=== PATIENT | male | born 1965 | race American Indian/Alaskan Native ===

== ENCOUNTER 2017-06-28 01:22 | Emergency (ER) | payer OTHER ==
--- NOTE | 2017-06-28 02:02 | XR ---
EXAMINATION TYPE: XR knee complete RT DATE OF EXAM: 06/28/2017 COMPARISON: NONE HISTORY: Fall and knee pain TECHNIQUE: 3 views FINDINGS: I see no fracture nor dislocation. Joint spaces are fairly normal. There is probably a smal l knee joint effusion. IMPRESSION: Small joint effusion. No fracture.
--- NOTE | 2017-06-28 02:03 | XR ---
EXAMINATION TYPE: XR ankle complete RT DATE OF EXAM: 06/28/2017 COMPARISON: NONE HISTORY: Fall and pain TECHNIQUE: 3 views FINDINGS: I see no fracture nor dislocation. Ankle mortise is anatomic. Joint spaces are normal. IMPRESSION: No fracture seen. Negative exam.
[2017-06-28] MEDS ORDERED: HYDROcodone/APAP 5-325MG 1 EACH TAB PO STA (02:06)
[2017-06-28] MEDS ORDERED: KETOROLAC 60 MG/2 ML VIAL IVP STA (02:06)
--- NOTE | 2017-06-28 02:10 | ED ---
General Adult HPI - General Chief complaint: Extremity Injury, Lower Stated complaint: FALL,KNEE PAIN Time Seen by Provider: 06/28/17 01:25 Source: patient, family, RN notes reviewed Mode of arrival: ambulatory - History of Present Illness Initial comments: This is a 51-year-old male who presents emergency Department complaining of right knee pain. Patient states she was walking and twisted it and since then it swelled up as hurts to ambulate. Patient denies any direct fall or trauma to the knee. Patient states had bouts of that knee for quite a while. Patient states his ankle also hurt a little bit but not very bad. Patient denies any other injury at this time. - Related Data Previous Rx's Medication Instructions Recorded Hydrocodone/Acetaminophen [Hudson 1 each PO Q4HR PRN #10 tab 06/28/17 5-325] Ibuprofen [Motrin] 600 mg PO Q6HR PRN #20 tab 06/28/17 Allergies Allergy/AdvReac Type Severity Reaction Status Date / Time No Known Allergies Allergy Verified 06/28/17 01:31 Review of Systems ROS Statement: Those systems with pertinent positive or pertinent negative responses have been documented in the HPI. ROS Other: All systems not noted in ROS Statement are negative. Past Medical History Additional Past Medical History / Comment(s): HAVING RECTAL PAIN AND SOME BLOOD , STATES HX OF RECTAL ABSCESS. , STATES ANTIBIOTIC FROM DR RAMOS FOR RECTAL PAIN. History of Any Multi-Drug Resistant Organisms: None Reported Past Surgical History: Hernia Repair Additional Past Surgical History / Comment(s): LUMP REMOVED BY RECTUM, ARTHROSCOPY LT KNEE, INGUINAL HERNIA Past Anesthesia/Blood Transfusion Reactions: No Reported Reaction Past Psychological History: No Psychological Hx Reported Smoking Status: Never smoker Past Alcohol Use History: Occasional Past Drug Use History: None Reported - Past Family History Mother Additional Family Medical History / Comment(s): HEART SURGERY Father Family Medical History: Diabetes Mellitus General Exam - General Exam Comments Initial Comments: GENERAL Patient is well-developed and well-nourished. Patient is in mild distress. EYES Patient's pupils are equal and round. Extraocular motion is intact SKIN Unremarkable NEURO The patient is alert and oriented 3 PYSCH Patient has normal interpersonal interactions. MUSCULOSKELETAL Knee has obvious effusion. But I'm I am on unable to test laxity because of the pain. Medical Decision Making - Medical Decision Making X-ray of the knee and ankle are negative for fracture the knee however does show a small joint effusion. Disposition Clinical Impression: Derangement of knee Disposition: HOME SELF-CARE Condition: Good Instructions: Knee Sprain (ED) Prescriptions: Hydrocodone/Acetaminophen [Hudson 5-325] 1 each PO Q4HR PRN #10 tab PRN Reason: Pain Ibuprofen [Motrin] 600 mg PO Q6HR PRN #20 tab PRN Reason: For pain Is patient prescribed a controlled substance at discharge?: Yes If prescribed controlled substance>3 days was MAPS reviewed?: No When asked, does pt state using other controlled substances?: No Referrals: Ulises Ramos DO [Primary Care Provider] - 1-2 days Miguel A Morrow DO [Doctor of Osteopathic Medicine] - 1-2 days Time of Disposition: 02:08
== END 2017-06-28 02:40 | disposition home or self-care (01) ==
LOC: EC 01:22
DX: M23.91 Unspecified internal derangement of right knee (principal); M25.461 Effusion, right knee; X50.1XXA Overexertion from prolonged static or awkward postures, initial encounter; W19.XXXA Unspecified fall, initial encounter; Y93.01 Activity, walking, marching and hiking; Y92.009 Unspecified place in unspecified non-institutional (private) residence as the place of occurrence of the external cause
CPT/HCPCS: 73562; 73610; 99283; 96372; L1830; J1885

== ENCOUNTER → 2017-07-01 | Outpatient (CLI) | payer OTHER ==
--- NOTE | 2017-07-02 22:35 | MR ---
EXAMINATION TYPE: MR knee RT wo con DATE OF EXAM: 07/01/2017 COMPARISON: Outside right knee x-ray from yesterday. HISTORY: Pain in right knee after twist and fall injury per patient. TECHNIQUE: Multiplanar, multisequence images of the knee is performed without IV contrast. FINDINGS: MEDIAL MENISCUS: Anterior horn is intact without tear. There is oblique and horizontal increased sign al posterior horn medial meniscus does not extend to articular surface. LATERAL MENISCUS: There is horizontal increased signal with oblique component anteriorly extending to articular surface through the lateral meniscus involving anterior horn through the body and extensio n into the superior aspect of the posterior horn where there is oblique signal extending to the super ior articular surface. CRUCIATE LIGAMENTS: The anterior and posterior cruciate ligaments are intact and unremarkable. COLLATERAL LIGAMENTS: The medial collateral ligament and lateral collateral ligament complex are inta ct. There is increased signal and thickening in proximal portion of the biceps femoris. Adjacent cyst ic changes noted, presumed para meniscal cystic change. There is mild to moderate fluid along the piper per aspects of medial collateral ligament. EXTENSOR MECHANISM: Visualized quadriceps and patellar tendons are intact. EFFUSION: There is small to moderate size suprapatellar joint effusion. POPLITEAL CYST: No popliteal/strickland cyst. TRICOMPARTMENT SPACES: There is mild to moderate tricompartment joint space loss. No significant spur ring is seen. CARTILAGE: There is some thinning of articular cartilage inferior posterior aspect patellar pole. Cliff e thinning of articular cartilage medial tibial femoral compartment is seen. No full thickness cartil aginous loss is noted. BONE MARROW SIGNAL: There is heterogeneous increased T2 signal involving the posterior medial aspect of the tibial plateau, seen best on coronal image 27 and sagittal image 8 there is irregular low T1 s ignal consistent with acute nondisplaced intra-articular fracture. There is extension or incomplete f racture noted below tibial condyles on coronal image 26. OTHER: No additional significant abnormality is appreciated. IMPRESSION: 1. There is acute nondisplaced fracture through the posterior medial aspect of the tibial plateau wit h surrounding osseous contusion and/or bone marrow edema. No step-off is noted. 2. There is complex full-thickness tear through the lateral meniscus. 3. There is degenerative intrasubstance tear posterior horn of medial meniscus. 4. There is mild to moderate MCL sprain injury. 5. There are small to moderate-sized suprapatellar joint effusion. 6. There is background mild to moderate tricompartment degenerative change.
== END | disposition home or self-care (01) ==
LOC: RADMRIMAIN 19:12
PROVIDERS: ATTEND Orthopaedic Surgery
DX: S82.134A Nondisplaced fracture of medial condyle of right tibia, initial encounter for closed fracture (principal); S83.241A Other tear of medial meniscus, current injury, right knee, initial encounter; S83.281A Other tear of lateral meniscus, current injury, right knee, initial encounter; S83.411A Sprain of medial collateral ligament of right knee, initial encounter

== ENCOUNTER → 2017-07-04 | Outpatient (CLI) | payer OTHER ==
[2017-07-04 15:37] LABS: Basophils % (A) 0 %; Eosinophils # (A) 0.3 k/uL (0-0.7); Eosinophils % (A) 3 %; HCT 43.9 % (39.0-53.0); HGB 14.7 gm/dL (13.0-17.5); Lymphocytes # (A) 2.1 k/uL (1.0-4.8); Lymphocytes % (A) 20 %; MCH 27.8 pg (25.0-35.0); MCHC 33.5 g/dL (31.0-37.0); Mean Platelet Volume 6.6; Monocytes # (A) 0.8 k/uL (0-1.0); Monocytes % (A) 8 %; Neutrophils # (A) 6.7 k/uL (1.3-7.7); Neutrophils % (A) 66 %; Platelet Count 366 k/uL (150-450); RBC 5.29 m/uL (4.30-5.90); RDW 13.1 % (11.5-15.5); WBC 10.1 k/uL (3.8-10.6)
[2017-07-04 15:45] LABS: Potassium 3.9 mmol/L (3.5-5.1)
== END | disposition home or self-care (01) ==
LOC: LABPAT 15:09
PROVIDERS: ATTEND Orthopaedic Surgery
DX: Z01.818 Encounter for other preprocedural examination (principal); Z01.812 Encounter for preprocedural laboratory examination; M23.91 Unspecified internal derangement of right knee
CPT/HCPCS: 36415; 80051; 85025; 93005

== ENCOUNTER 2017-07-08 08:19 | Day surgery (SDC) | payer OTHER ==
[2017-07-05 15:48] VITALS: BMI 36.9
--- NOTE | 2017-07-07 10:25 | HP ---
HISTORY AND PHYSICAL CHIEF COMPLAINT: Right knee pain. 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 He fell. He has had pain and swelling ever since. He had an initial injection with some relief. He notes lateral pain and giving way. PAST MEDICAL HISTORY: Negative. PAST SURGICAL HISTORY: Significant for left knee arthroscopy. CURRENT ALLERGIES: None. He denies drug allergies. FAMILY HISTORY: Significant for heart disease and diabetes. SOCIAL HISTORY: Negative for current tobacco or alcohol use. 16 POINT REVIEW OF SYSTEMS: Otherwise reviewed and is noncontributory. PHYSICAL EXAMINATION: The patient is approximately 5 foot 9, 250 pounds of endomorphic habitus. HEENT exam is nonfocal. Neck is supple. He has painless passive motion of the right hip. Straight leg raise is negative. On examination of his right knee, he has a moderate effusion. He is tender about the lateral joint line. Active motion -10 to 115 degrees of flexion. Collaterals are stable, Maya is negative, Lavinia's elicits lateral pain. His distal neurovascular exam appears intact in the right lower extremity. X-rays of the right knee obtained in the office show mild medial compartment narrowing. No definite displaced fracture is noted. MRI report from 07/01/2017 shows increased signal involving the posterior aspect of the medial tibial plateau along with a medial collateral ligament sprain and lateral meniscal tear. IMPRESSION: 1. Right knee internal derangement with symptomatic lateral meniscal tear. 2. Posterior medial tibial plateau contusion right knee. 3. Right knee mild medial compartment osteoarthrosis. 4. Increased body mass index. RECOMMENDATIONS: I talked to the patient at length regarding his treatment options. At this point, he is having pain and mechanical symptoms that limit him. After thorough discussion, he opts to proceed with surgery. We will plan to proceed with arthroscopic evaluation with probable partial lateral meniscectomy. Risks and benefits were discussed at length in layman's terms. Will likely perform that as an outpatient procedure. MMODL / IJN: [id number] /
[~2017-07-08 08:19] MED LIST: DEXAMETHASONE SOD PHOSPHATE 10 MG/ML 1 ML VIAL IV ONE; LACTATED RINGERS 1,000 ML IV SCH; MIDAZOLAM 2 MG/2 ML VIAL IV PRN; ONDANSETRON ODT 4 MG TAB PO ONE; SCOPOLAMINE 1.5MG/72HR PATCH TRANSDERM ONE; fentaNYL (PF) 50 MCG/ML 2 ML AMP IV PRN
[2017-07-08] MEDS ORDERED: ONDANSETRON 4 MG/2 ML VIAL IVP ONE (10:25)
[2017-07-08] MEDS ORDERED: SUCCINYLCHOLINE CHLORIDE 100 MG/5 ML SYR IV ONE (10:52)
[2017-07-08] MEDS: ceFAZolin IN SWFI 2 GM/20 ML SYRINGE IVP ONE ×2 (10:52→11:10)
[2017-07-08] MEDS ORDERED: PROPOFOL 10 MG/ML 20 ML VIAL IV ONE (10:52)
[2017-07-08] MEDS ORDERED: LIDOCAINE 1% INJ 10MG/ML (20 ML MDV) ONE (10:52)
[2017-07-08] MEDS ORDERED: MORPHINE SULFATE 10 MG/ML SYRINGE ONE (10:52)
[2017-07-08] MEDS ORDERED: fentaNYL (PF) 50 MCG/ML 2 ML AMP ONE (10:52)
[2017-07-08] MEDS ORDERED: MIDAZOLAM 2 MG/2 ML VIAL ONE (10:52)
--- NOTE | 2017-07-08 11:48 | P.OP ---
Date of Procedure: 07/08/17 Preoperative Diagnosis: Right knee lateral meniscal tear Postoperative Diagnosis: Same in addition to a discoid lateral meniscus/grade 2-3 chondral injury central portion patella Procedure(s) Performed: Right knee arthroscopic partial lateral meniscectomy/saucerization lateral meniscus/patellar chondroplasty Anesthesia: RONAK Surgeon: Fabio Banks Estimated Blood Loss (ml): 10 Pathology: none sent Condition: stable Disposition: PACU Indications for Procedure: The patient's a 51-year-old male who presents with progressive right knee pain and mechanical symptoms after a recent twisting injury. Clinically and by MRI he was noted to have evidence of a symptomatic lateral meniscal tear. A discussion of the risks and benefits of operative intervention versus conservative measures was made with the patient. He opted to proceed with surgery. Operative risks to include infection, neurovascular injury, development of blood clots, possible incomplete resolution symptoms, possible worsening symptoms and need for subsequent procedures was discussed. Informed consent was obtained. Operative Findings: As below Description of Procedure: The patient was brought to the operating room, and after induction of general anesthesia examined the right knee. Collaterals were stable, Maya was negative, and posterior drawer was negative. The right lower extremity was prepped and draped in normal fashion. A superior lateral portal was made through a 3 mm skin incision superior and lateral to the patella. This was used for outflow. A lateral portal was made through a 5 mm vertical skin incision lateral to the patella tendon above the joint line. Diagnostic arthroscopy was performed. A medial portal was made through a similar incision medial to the patellar tendon above the joint line. On inspection of the medial compartment, no significant meniscal or cartilage pathology was noted. On inspection of the notch, the anterior cruciate ligament appeared be intact. On inspection of the lateral compartment, the patient was noted have a discoid lateral meniscus with maceration and tear near the periphery. At this point it was elected to proceed with saucerization of the lateral meniscus along with partial lateral meniscectomy. This was taken back to stable base with straight baskets and motorized shaver. Grade 2 chondral changes were noted diffusely in the lateral compartment. On inspection of the patellofemoral articulation, a grade 2-3 chondral injury was noted in both involving the central portion the patella. There was a loose chondral fragment that was debrided back to a stable base with a motorized shaver. The gutters were clear debris. The knee was then thoroughly irrigated. The portals were closed with Steri-Strips. A sterile dressing was applied in addition to a compression stocking. The patient was awoken from general anesthesia and transferred to recovery room in good condition. Blood loss was estimated at 10 mL. No complications were incurred.
[2017-07-08 11:59] VITALS: TEMP 97.8
[2017-07-08] MEDS: MORPHINE SULFATE 4 MG/0.8 ML SYRINGE (INJ) IVP ONE ×4 (12:15→12:38)
[2017-07-08] MEDS ORDERED: LACTATED RINGERS 1,000 ML IV ONE (13:24)
[2017-07-08 13:42] VITALS: RESP 18
[2017-07-08] MEDS ORDERED: HYDROcodone/APAP 5-325MG 1 EACH TAB PO ONE (13:48)
[2017-07-08 14:12] VITALS: BP 119/79; PULSE 54
== END 2017-07-08 14:35 | disposition home or self-care (01) ==
LOC: OR 08:19
PROVIDERS: ATTEND Orthopaedic Surgery
DX: S83.281A Other tear of lateral meniscus, current injury, right knee, initial encounter (principal); S89.81XA Other specified injuries of right lower leg, initial encounter; S80.01XA Contusion of right knee, initial encounter; Y93.H2 Activity, gardening and landscaping; Y99.8 Other external cause status; M17.11 Unilateral primary osteoarthritis, right knee; X50.1XXA Overexertion from prolonged static or awkward postures, initial encounter; Z82.49 Family history of ischemic heart disease and other diseases of the circulatory system; Z83.3 Family history of diabetes mellitus
CPT/HCPCS: 29881; J2250; J1100; J2270 ×2; J2405; J2001; J3010; J0330; J2704; J0690

== ENCOUNTER 2021-11-07 17:57 | Observation (INO) | payer OTHER ==
[2021-11-07] MEDS ORDERED: HYDROmorphone 0.5 MG/0.5 ML SYRINGE IVP STA (18:40)
[2021-11-07] MEDS ORDERED: SODIUM CHLORIDE 0.9% 1,000 ML IV STA (18:40)
[2021-11-07] MEDS ORDERED: ONDANSETRON 4 MG/2 ML VIAL IVP STA (18:40)
--- NOTE | 2021-11-07 18:50 | ED ---
General Adult HPI - General Chief complaint: Skin/Abscess/Foreign Body Stated complaint: Abscess Time Seen by Provider: 11/07/21 18:18 Source: patient, RN notes reviewed Mode of arrival: ambulatory Limitations: no limitations - History of Present Illness Initial comments: 56-year-old male presents to the emergency Department with complaints of rectal abscess. Patient states he has a history of recurrent abscesses and has once required surgery (while in [place]). Describes location of the abscess as entirely internal therefore has no visualized redness or drainage at this time. States he had left over antibiotic that he took 2 or 3 doses of with no improvement. States he is able to pass stool, though it is painful. 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 Denies fever, chills, headache, chest pain, shortness of breath, abdominal pain, nausea, vomiting, diarrhea, or dysuria. - Related Data Home Medications Medication Instructions Recorded Confirmed Amoxicillin 500 mg PO TID 11/07/21 11/07/21 Allergies Allergy/AdvReac Type Severity Reaction Status Date / Time No Known Allergies Allergy Verified 11/07/21 21:28 Review of Systems ROS Statement: Those systems with pertinent positive or pertinent negative responses have been documented in the HPI. ROS Other: All systems not noted in ROS Statement are negative. Past Medical History Additional Past Medical History / Comment(s): STATES HX OF RECTAL ABSCESS. History of Any Multi-Drug Resistant Organisms: None Reported Past Surgical History: Hernia Repair, Orthopedic Surgery Additional Past Surgical History / Comment(s): LUMP REMOVED BY RECTUM,ARTHROSCOPY LT KNEE, INGUINAL HERNIA Past Anesthesia/Blood Transfusion Reactions: No Reported Reaction Past Psychological History: No Psychological Hx Reported Smoking Status: Never smoker Past Alcohol Use History: Occasional Past Drug Use History: None Reported - Past Family History Mother Additional Family Medical History / Comment(s): HEART SURGERY Father Family Medical History: Diabetes Mellitus General Exam Limitations: no limitations General appearance: alert, in no apparent distress, other (Well-developed, well- nourished male in no acute distress, though does appear moderately uncomfortable. Initial temperature 98.0, recheck 99.7, pulse 102, respirations 20, blood pressure 133/84, pulse ox 96% on room air.) ENT exam: Present: normal exam, normal oropharynx, mucous membranes moist Respiratory exam: Present: normal lung sounds bilaterally. Absent: respiratory distress, wheezes, rales, rhonchi, stridor, chest wall tenderness Cardiovascular Exam: Present: regular rate, normal rhythm, normal heart sounds. Absent: systolic murmur, diastolic murmur, rubs, gallop, clicks GI/Abdominal exam: Present: soft, normal bowel sounds. Absent: distended, tenderness, guarding, rebound, rigid Rectal exam: Present: tenderness (no discomfort upon external palpation) Back exam: Present: normal inspection, full ROM Neurological exam: Present: alert, oriented X3, normal gait Psychiatric exam: Present: normal affect, normal mood Skin exam: Present: warm, dry, intact, normal color. Absent: rash Course Vital Signs 11/07/21 11/07/21 11/07/21 17:59 21:30 23:34 Temperature 98.0 F Pulse Rate 102 H 98 97 Respiratory 20 18 18 Rate Blood Pressure 133/84 102/68 101/61 O2 Sat by Pulse 96 95 96 Oximetry Medical Decision Making - Medical Decision Making This is a pleasant 56-year-old male with a past medical history of recurrent rectal abscesses who presents to the emergency department for evaluation of rectal discomfort. Upon exam, patient does appear moderately uncomfortable but is in no acute distress. Physical exam findings are unremarkable and there is no external evidence of infectious process. Laboratory studies were obtained showing leukocytosis (WBC 16.4). CT of the pelvis confirms perirectal abscess. I did speak with Dr. Cooley who agrees to accept this admission. Hospitalist will be consulted for medical management. Zosyn is initiated and patient is NPO. Dilaudid was given for pain with minimal improvement, though patient was content. His care was discussed my attending, Dr. Brumfield. - Lab Data Result diagrams: 11/08/21 02:00 11/08/21 02:00 Lab Results 11/07/21 11/07/21 Range/Units 19:00 19:00 WBC 16.4 H (3.8-10.6) k/uL RBC 5.56 (4.30-5.90) m/uL Hgb 15.9 (13.0-17.5) gm/dL Hct 47.2 (39.0-53.0) % MCV 84.8 (80.0-100.0) fL MCH 28.7 (25.0-35.0) pg MCHC 33.8 (31.0-37.0) g/dL RDW 13.3 (11.5-15.5) % Plt Count 272 (150-450) k/uL MPV 7.4 Neutrophils % 82 % Lymphocytes % 8 % Monocytes % 7 % Eosinophils % 1 % Basophils % 0 % Neutrophils # 13.4 H (1.3-7.7) k/uL Lymphocytes # 1.3 (1.0-4.8) k/uL Monocytes # 1.2 H (0-1.0) k/uL Eosinophils # 0.1 (0-0.7) k/uL Basophils # 0.1 (0-0.2) k/uL Sodium 135 L (137-145) mmol/L Potassium 3.9 (3.5-5.1) mmol/L Chloride 98 (98-107) mmol/L Carbon Dioxide 25 (22-30) mmol/L Anion Gap 12 mmol/L BUN 12 (9-20) mg/dL Creatinine 0.93 (0.66-1.25) mg/dL Est GFR (CKD-EPI)AfAm >90 (>60 ml/min/1.73 sqM) Est GFR (CKD-EPI)NonAf >90 (>60 ml/min/1.73 sqM) Glucose 114 H (74-99) mg/dL Calcium 9.4 (8.4-10.2) mg/dL Total Bilirubin 1.1 (0.2-1.3) mg/dL AST 30 (17-59) U/L ALT 31 (4-49) U/L Alkaline Phosphatase 87 (38-126) U/L Total Protein 7.3 (6.3-8.2) g/dL Albumin 4.1 (3.5-5.0) g/dL - Radiology Data Radiology results: report reviewed, image reviewed CT of the pelvis with contrast was obtained. Report was reviewed in its entirety. Impression per Dr. Crawford is right-sided perirectal abscess. Disposition Clinical Impression: Perirectal abscess Disposition: ADMITTED IP TO THIS [facility] Condition: Serious Decision Date: 11/07/21 Decision Time: 21:18
[2021-11-07 19:44] LABS: Basophils # (A) 0.1 k/uL (0-0.2); Basophils % (A) 0 %; Eosinophils # (A) 0.1 k/uL (0-0.7); Eosinophils % (A) 1 %; HCT 47.2 % (39.0-53.0); HGB 15.9 gm/dL (13.0-17.5); Lymphocytes # (A) 1.3 k/uL (1.0-4.8); Lymphocytes % (A) 8 %; MCH 28.7 pg (25.0-35.0); MCHC 33.8 g/dL (31.0-37.0); MCV 84.8 fL (80.0-100.0); Mean Platelet Volume 7.4; Monocytes # (A) 1.2 k/uL (0-1.0); Monocytes % (A) 7 %; Neutrophils # (A) 13.4 k/uL (1.3-7.7); Neutrophils % (A) 82 %; Platelet Count 272 k/uL (150-450); RBC 5.56 m/uL (4.30-5.90); RDW 13.3 % (11.5-15.5); WBC 16.4 k/uL (3.8-10.6)
[2021-11-07 20:00] LABS: ALT 31 U/L (4-49); AST 30 U/L (17-59); African American GFR (CKD) >90 (>60 ml/min/1.73 sqM); Albumin 4.1 g/dL (3.5-5.0); Alkaline Phosphatase 87 U/L (38-126); Anion Gap 12 mmol/L; Blood Urea Nitrogen 12 mg/dL (9-20); Calcium 9.4 mg/dL (8.4-10.2); Carbon Dioxide 25 mmol/L (22-30); Chloride 98 mmol/L (98-107); Glucose 114 mg/dL (74-99); Non-African American GFR(CKD) >90 (>60 ml/min/1.73 sqM); Potassium 3.9 mmol/L (3.5-5.1); Sodium 135 mmol/L (137-145); Total Bilirubin 1.1 mg/dL (0.2-1.3); Total Protein 7.3 g/dL (6.3-8.2)
--- NOTE | 2021-11-07 20:20 | CT ---
EXAMINATION TYPE: CT pelvis w con DATE OF EXAM: 11/07/2021 COMPARISON: None HISTORY: rectal pain, h/o abscess CT DLP: 1642.6 mGycm Automated exposure control for dose reduction was used. CONTRAST: Performed with IV Contrast, patient injected with 100 mL of Isovue 300. Images obtained from the iliac crests to the floor of the pelvis with the IV contrast. There is no free fluid in the pelvis. There is normal contrast opacification of the urinary bladder. Bladder distends smoothly. No bowel obstruction. Bony pelvis is intact. No fracture. Hip joints are i ntact. There is some mild fat stranding around the lower rectum. There is wall thickening and 3 x 2 c m fluid density on the right lateral wall of the rectum consistent with perirectal abscess. No free f luid within the pelvis. IMPRESSION: Right-sided perirectal abscess.
[2021-11-07] MEDS ORDERED: ONDANSETRON 4 MG/2 ML VIAL IVP PRN (21:18)
[2021-11-07] MEDS ORDERED: NALOXONE 0.4 MG/ML 1 ML VIAL IV PRN (21:18)
[2021-11-07] MEDS ORDERED: PIPERACILLIN-TAZOBACTAM 3.375 GM in SODIUM CHLORIDE 0.9% 100 ML IVPB STA (21:21)
[2021-11-07] MEDS: SODIUM CHLORIDE 0.9% 1,000 ML IV SCH (21:44)
[2021-11-07] MEDS: HYDROmorphone 1 MG/ML 1 ML SYRINGE IVP PRN (21:46)
[2021-11-08] MEDS: HYDROmorphone 1 MG/ML 1 ML SYRINGE IVP PRN (00:29)
[2021-11-08 02:39] LABS: African American GFR (CKD) >90 (>60 ml/min/1.73 sqM); Anion Gap 10 mmol/L; Blood Urea Nitrogen 14 mg/dL (9-20); Calcium 8.5 mg/dL (8.4-10.2); Carbon Dioxide 25 mmol/L (22-30); Chloride 100 mmol/L (98-107); Glucose 117 mg/dL (74-99); Non-African American GFR(CKD) >90 (>60 ml/min/1.73 sqM); Potassium 4.3 mmol/L (3.5-5.1); Sodium 135 mmol/L (137-145)
[2021-11-08 02:43] LABS: Basophils # (A) 0.1 k/uL (0-0.2); Basophils % (A) 0 %; Eosinophils # (A) 0.1 k/uL (0-0.7); Eosinophils % (A) 0 %; HCT 42.5 % (39.0-53.0); HGB 14.2 gm/dL (13.0-17.5); Lymphocytes % (A) 5 %; MCH 28.3 pg (25.0-35.0); MCHC 33.4 g/dL (31.0-37.0); MCV 84.6 fL (80.0-100.0); Mean Platelet Volume 7.2; Monocytes # (A) 1.5 k/uL (0-1.0); Monocytes % (A) 7 %; Neutrophils # (A) 18.5 k/uL (1.3-7.7); Neutrophils % (A) 86 %; Platelet Count 254 k/uL (150-450); RBC 5.03 m/uL (4.30-5.90); WBC 21.4 k/uL (3.8-10.6)
[2021-11-08] MEDS ORDERED: MIDAZOLAM 2 MG/2 ML VIAL ONE (08:30)
[2021-11-08] MEDS ORDERED: PROPOFOL 10 MG/ML 20 ML VIAL IV ONE (08:30)
[2021-11-08] MEDS ORDERED: fentaNYL (PF) 50 MCG/ML 2 ML AMP ONE (08:30)
[2021-11-08] MEDS ORDERED: LIDOCAINE 2% INJ 20 MG/ML (2 ML VIAL) ONE (08:30)
[2021-11-08] MEDS ORDERED: HEPARIN SODIUM,PORCINE 5,000 UNIT/ML 1 ML VIAL ONE (08:30)
[2021-11-08] MEDS ORDERED: ONDANSETRON 4 MG/2 ML VIAL ONE (08:30)
[2021-11-08] MEDS ORDERED: SUCCINYLCHOLINE CHLORIDE 200 MG/10 ML VIAL IV ONE (08:30)
[2021-11-08] MEDS ORDERED: DEXAMETHASONE SOD PHOSPHATE 10 MG/ML 1 ML VIAL ONE (08:30)
[2021-11-08] MEDS ORDERED: LACTATED RINGERS 1,000 ML IV ONE (08:35)
--- NOTE | 2021-11-08 08:37 | P.GSHP ---
History of Present Illness H&P Date: 11/08/21 Chief Complaint: Rectal abscess 56-year-old male comes the ER yesterday with complaints of rectal pain. Patient states he has had a abscess drained in [place] years ago. Patient states that the abscesses internal. He does not feel anything on the outside. Patient tried taking some antibiotics that he had at home without relief. No fevers. White blood cell count elevated. Patient had a CAT scan showing perirectal abscess primarily involving the right side. Patient's is more of his pain is on the right. - Review of Systems Comment: The patient denies any acute changes in vision or hearing, no dysphagia or odynophagia, no chest pain or shortness of breath, no dysuria or hematuria, no headache, no runny nose, no rectal bleeding or melena, no unexplained weight loss Past Medical History Additional Past Medical History / Comment(s): STATES HX OF RECTAL ABSCESS. History of Any Multi-Drug Resistant Organisms: None Reported Past Surgical History: Hernia Repair, Orthopedic Surgery Additional Past Surgical History / Comment(s): LUMP REMOVED BY RECTUM,ARTHROSCOPY LT KNEE, INGUINAL HERNIA Past Anesthesia/Blood Transfusion Reactions: No Reported Reaction Past Psychological History: No Psychological Hx Reported Smoking Status: Never smoker Past Alcohol Use History: Occasional Past Drug Use History: None Reported - Past Family History Mother Additional Family Medical History / Comment(s): HEART SURGERY Father Family Medical History: Diabetes Mellitus Medications and Allergies Home Medications Medication Instructions Recorded Confirmed Type Amoxicillin 500 mg PO TID 11/07/21 11/07/21 History Allergies Allergy/AdvReac Type Severity Reaction Status Date / Time No Known Allergies Allergy Verified 11/07/21 21:28 Surgical - Exam Vital Signs Temp Pulse Resp BP Pulse Ox 98.0 F 102 H 20 133/84 96 11/07/21 17:59 11/07/21 17:59 11/07/21 17:59 11/07/21 17:59 11/07/21 17:59 Physical exam: General: Well-developed, well-nourished HEENT: Normocephalic, sclerae nonicteric Abdomen: Nontender, nondistended Extremities: No edema Neuro: Alert and oriented Rectal: Digital rectal examination deferred however external evaluation of the perianal region reveals no induration or erythema. Mild tenderness with deep palpation on the right Results - Labs 11/08/21 02:00 11/08/21 02:00 Abnormal Lab Results - Last 24 Hours (Table) 11/07/21 11/07/21 11/08/21 Range/Units 19:00 19:00 02:00 WBC 16.4 H 21.4 H (3.8-10.6) k/uL Neutrophils # 13.4 H 18.5 H (1.3-7.7) k/uL Monocytes # 1.2 H 1.5 H (0-1.0) k/uL Sodium 135 L (137-145) mmol/L Glucose 114 H (74-99) mg/dL 11/08/21 Range/Units 02:00 WBC (3.8-10.6) k/uL Neutrophils # (1.3-7.7) k/uL Monocytes # (0-1.0) k/uL Sodium 135 L (137-145) mmol/L Glucose 117 H (74-99) mg/dL Diabetes panel 11/07/21 11/08/21 Range/Units 19:00 02:00 Sodium 135 L 135 L (137-145) mmol/L Potassium 3.9 4.3 (3.5-5.1) mmol/L Chloride 98 100 (98-107) mmol/L Carbon Dioxide 25 25 (22-30) mmol/L BUN 12 14 (9-20) mg/dL Creatinine 0.93 0.83 (0.66-1.25) mg/dL Glucose 114 H 117 H (74-99) mg/dL Calcium 9.4 8.5 (8.4-10.2) mg/dL AST 30 (17-59) U/L ALT 31 (4-49) U/L Alkaline Phosphatase 87 (38-126) U/L Total Protein 7.3 (6.3-8.2) g/dL Albumin 4.1 (3.5-5.0) g/dL Calcium panel 11/07/21 11/08/21 Range/Units 19:00 02:00 Calcium 9.4 8.5 (8.4-10.2) mg/dL Albumin 4.1 (3.5-5.0) g/dL Pituitary panel 11/07/21 11/08/21 Range/Units 19:00 02:00 Sodium 135 L 135 L (137-145) mmol/L Potassium 3.9 4.3 (3.5-5.1) mmol/L Chloride 98 100 (98-107) mmol/L Carbon Dioxide 25 25 (22-30) mmol/L BUN 12 14 (9-20) mg/dL Creatinine 0.93 0.83 (0.66-1.25) mg/dL Glucose 114 H 117 H (74-99) mg/dL Calcium 9.4 8.5 (8.4-10.2) mg/dL Adrenal panel 11/07/21 11/08/21 Range/Units 19:00 02:00 Sodium 135 L 135 L (137-145) mmol/L Potassium 3.9 4.3 (3.5-5.1) mmol/L Chloride 98 100 (98-107) mmol/L Carbon Dioxide 25 25 (22-30) mmol/L BUN 12 14 (9-20) mg/dL Creatinine 0.93 0.83 (0.66-1.25) mg/dL Glucose 114 H 117 H (74-99) mg/dL Calcium 9.4 8.5 (8.4-10.2) mg/dL Total Bilirubin 1.1 (0.2-1.3) mg/dL AST 30 (17-59) U/L ALT 31 (4-49) U/L Alkaline Phosphatase 87 (38-126) U/L Total Protein 7.3 (6.3-8.2) g/dL Albumin 4.1 (3.5-5.0) g/dL Assessment and Plan (1) Perirectal abscess Narrative/Plan: 56-year-old male with perirectal abscess by history and CAT scan. Proceed with incision and drainage of rectal abscess. This will be performed in the prone position. Anticipate draining into the rectum. Patient does state that he had some clear rectal drainage this morning some relief of his discomfort. Risks of bleeding, infection, recurrence, fistula formation reviewed. He understands and wishes to proceed. Current Visit: Yes Status: Acute Code(s): K61.1 - RECTAL ABSCESS SNOMED Code(s): 57998406
[2021-11-08] MEDS ORDERED: SODIUM CHLORIDE 0.9% 100 ML with ceFAZolin 2,000 MG IV ONE ×2 (09:00)
[2021-11-08] MEDS ORDERED: ACETAMINOPHEN TAB 325 MG TAB PO PRN (09:42)
[2021-11-08] MEDS ORDERED: HYDROcodone/APAP 5-325MG 1 EACH TAB PO PRN (09:42)
[2021-11-08] MEDS ORDERED: HYDROmorphone 0.5 MG/0.5 ML SYRINGE IVP PRN (09:42)
--- NOTE | 2021-11-08 09:47 | P.OP ---
Date of Procedure: 11/08/21 Procedure(s) Performed: PREOPERATIVE DIAGNOSIS: Rectal abscess POSTOPERATIVE DIAGNOSIS: Same PROCEDURE: Incision and drainage of rectal abscess SURGEON: Yasir EBL: 25 mL ANESTHESIA: Gen. COMPLICATIONS: None OPERATIVE PROCEDURE: Patient place in the operating position in the prone jackknife position. The patient had some purulent fluid emanating from the anus while we were positioning. Digital rectal examination revealed induration in the right posterior location. The rectal retractor was utilized. The patient had a sinus opening in the distal aspect of the rectum near the border with the anal canal. This was probed and led into a abscess cavity proximally. Digital palpation of the wall of the rectum however also revealed a small defect in the posterior lateral position on the right that was leading into the abscess cavity as well. These 2 openings did communicate with one another with a thin bridge of mucosa overlying it. The mucosa was divided. Blunt dissection of the more proximal defect took place with a small amount of additional purulence evacuated. The degree of induration was less at that time. I did use a 22- gauge needle to see if there was any additional purulence that was not drained either by ourselves or spontaneously. No additional purulence was noted. The proximal rectal wound was then packed with iodoform gauze. This exited through the anus and was taped to the albert-anal skin. DISPOSITION: Stable to recovery room
[2021-11-08] MEDS ORDERED: HYDROmorphone 0.5 MG/0.5 ML SYRINGE IVP ONE (10:06)
[2021-11-08] MEDS: PIPERACILLIN-TAZOBACTAM 3.375 GM in SODIUM CHLORIDE 0.9% 100 ML IVPB SCH ×2 (11:25→20:28)
--- NOTE | 2021-11-08 11:44 | P.CONS ---
History of Present Illness - Reason for Consult Recommendation regarding antibiotics for perirectal abscess - History of Present Illness Patient is a 56-year-old male came in with compensative rectal pain found to have perirectal abscesses patient had a perirectal abscess the past which was drained in the cold, patient also has a leukocytosis without any fever and patient had incision and drainage of the perirectal abscess with packing in that area and patient was started on Zosyn which will be continued awaiting wound cultures. REVIEW OF SYSTEMS: CONSTITUTIONAL: No fever, no malaise, no fatigue. HEENT: No recent visual problems or hearing problems. Denied any sore throat. CARDIOVASCULAR: No chest pain, orthopnea, PND, no palpitations, no syncope. PULMONARY: No shortness of breath, no cough, no hemoptysis. GASTROINTESTINAL: No diarrhea, no nausea, no vomiting, no abdominal pain. NEUROLOGICAL: No headaches, no weakness, no numbness. HEMATOLOGICAL: Denies any bleeding or petechiae. GENITOURINARY: Denies any burning micturition, frequency, or urgency. MUSCULOSKELETAL/RHEUMATOLOGICAL: Denies any joint pain, swelling, or any muscle pain. ENDOCRINE: Denies any polyuria or polydipsia. The rest of the 14-point review of systems is negative. PHYSICAL EXAMINATION: GENERAL: The patient is alert and oriented x3, not in any acute distress. Well developed, well nourished. HEENT: Pupils are round and equally reacting to light. EOMI. No scleral icterus. No conjunctival pallor. Normocephalic, atraumatic. No pharyngeal erythema. No thyromegaly. CARDIOVASCULAR: S1 and S2 present. No murmurs, rubs, or gallops. PULMONARY: Chest is clear to auscultation, no wheezing or crackles. ABDOMEN: Soft, nontender, nondistended, normoactive bowel sounds. No palpable organomegaly. MUSCULOSKELETAL: No joint swelling or deformity. EXTREMITIES: No cyanosis, clubbing, or pedal edema. NEUROLOGICAL: Gross neurological examination did not reveal any focal deficits. SKIN: Perirectal area with his postsurgically packed Assessment and plan -Perirectal abscess status post incision and drainage: Patient to is on Zosyn which will be continued will monitor white blood cell count. -Leukocytosis secondary to above DVT prophylaxis: As per primary service Past Medical History Additional Past Medical History / Comment(s): STATES HX OF RECTAL ABSCESS. History of Any Multi-Drug Resistant Organisms: None Reported Past Surgical History: Hernia Repair, Orthopedic Surgery Additional Past Surgical History / Comment(s): LUMP REMOVED BY RECTUM,ARTHROSCOPY LT KNEE, INGUINAL HERNIA Past Anesthesia/Blood Transfusion Reactions: No Reported Reaction Past Psychological History: No Psychological Hx Reported Smoking Status: Never smoker Past Alcohol Use History: Occasional Past Drug Use History: None Reported - Past Family History Mother Additional Family Medical History / Comment(s): HEART SURGERY Father Family Medical History: Diabetes Mellitus Medications and Allergies Home Medications Medication Instructions Recorded Confirmed Type Amoxicillin 500 mg PO TID 11/07/21 11/07/21 History Allergies Allergy/AdvReac Type Severity Reaction Status Date / Time No Known Allergies Allergy Verified 11/07/21 21:28 Physical Exam Vitals: Vital Signs Temp Pulse Pulse Pulse Resp BP BP 11/08/21 11:09 54 L 128/73 11/08/21 10:55 57 L 107/70 11/08/21 10:39 97.5 F L 62 16 121/77 11/08/21 10:25 60 16 11/08/21 10:17 65 16 11/08/21 10:09 61 14 11/08/21 09:54 62 14 11/08/21 09:39 97.0 F L 71 14 11/08/21 07:16 18 11/08/21 07:00 98.3 F 59 L 16 11/08/21 04:35 98.1 F 63 18 11/08/21 00:21 97.4 F L 72 18 11/07/21 23:34 97 18 101/61 11/07/21 21:30 98 18 102/68 11/07/21 17:59 98.0 F 102 H 20 133/84 BP BP Pulse Ox 11/08/21 11:09 97 11/08/21 10:55 97 11/08/21 10:39 98 11/08/21 10:25 122/62 94 L 11/08/21 10:17 115/66 95 11/08/21 10:09 134/69 98 11/08/21 09:54 131/74 96 11/08/21 09:39 123/72 96 11/08/21 07:16 11/08/21 07:00 110/69 100 11/08/21 04:35 92/55 93 L 11/08/21 00:21 111/71 92 L 11/07/21 23:34 96 11/07/21 21:30 95 11/07/21 17:59 96 Intake and Output 11/07/21 11/08/21 11/08/21 22:59 06:59 14:59 Intake Total 1000 Output Total 200 25 Balance -200 975 Intake: IV 1000 Output: Urine 200 Estimated Blood Loss 25 Other: Voiding Method Toilet Toilet Urinal Urinal Weight 113.398 kg 113.398 kg Results CBC & Chem 7: 11/08/21 02:00 11/08/21 02:00 Labs: Abnormal Lab Results - Last 24 Hours (Table) 11/07/21 11/07/21 11/08/21 Range/Units 19:00 19:00 02:00 WBC 16.4 H 21.4 H (3.8-10.6) k/uL Neutrophils # 13.4 H 18.5 H (1.3-7.7) k/uL Monocytes # 1.2 H 1.5 H (0-1.0) k/uL Sodium 135 L (137-145) mmol/L Glucose 114 H (74-99) mg/dL 11/08/21 Range/Units 02:00 WBC (3.8-10.6) k/uL Neutrophils # (1.3-7.7) k/uL Monocytes # (0-1.0) k/uL Sodium 135 L (137-145) mmol/L Glucose 117 H (74-99) mg/dL
[2021-11-08] MEDS: SODIUM CHLORIDE 0.9% 1,000 ML IV SCH ×2 (12:00→23:53)
[2021-11-08] MEDS: KETOROLAC 15 MG/ML 1 ML VIAL IVP SCH ×3 (12:16→23:57)
[2021-11-08] MEDS: HEPARIN SODIUM,PORCINE/PF 5,000 UNIT/0.5 ML SYRINGE SQ SCH ×2 (16:22→23:58)
[2021-11-08] MEDS: D5-0.45% NACL WITH KCL 20MEQ/L 1,000 ML IV SCH (16:52)
[2021-11-08] MEDS: DOCUSATE 100 MG CAP PO SCH (20:29)
[2021-11-09] MEDS: PIPERACILLIN-TAZOBACTAM 3.375 GM in SODIUM CHLORIDE 0.9% 100 ML IVPB SCH ×2 (04:19→12:10)
[2021-11-09] MEDS: D5-0.45% NACL WITH KCL 20MEQ/L 1,000 ML IV SCH ×2 (04:23→09:01)
[2021-11-09] MEDS: KETOROLAC 15 MG/ML 1 ML VIAL IVP SCH ×2 (05:55→12:09)
[2021-11-09 08:56] LABS: Basophils # (A) 0.03 X 10*3/uL (0.00-0.10); Basophils % (A) 0.2 %; Eosinophils # (A) 0.08 X 10*3/uL (0.04-0.35); Eosinophils % (A) 0.5 %; HCT 41.4 % (39.6-50.0); HGB 13.8 g/dL (13.0-17.0); Immature Grans, Automated 0.6 %; Lymphocytes # (A) 1.62 X 10*3/uL (0.90-5.00); Lymphocytes % (A) 10.5 %; MCH 28.3 pg (27.0-32.0); MCHC 33.3 g/dL (32.0-37.0); MCV 84.8 fL (80.0-97.0); Mean Platelet Volume 10.2 fL (9.5-12.2); Monocytes # (A) 1.26 X 10*3/uL (0.20-1.00); Monocytes % (A) 8.1 %; NRBC Per 100 WBC 0 /100 WBCS (0.0-0.0); Neutrophils # (A) 12.39 X 10*3/uL (1.80-7.70); Neutrophils % (A) 80.1 %; Platelet Count 318 X 10*3/uL (140-440); RBC 4.88 X 10*6/uL (4.40-5.60); WBC 15.47 X 10*3/uL (4.50-10.00)
[2021-11-09] MEDS: HEPARIN SODIUM,PORCINE/PF 5,000 UNIT/0.5 ML SYRINGE SQ SCH (09:01)
[2021-11-09] MEDS: DOCUSATE 100 MG CAP PO SCH (09:01)
--- NOTE | 2021-11-09 12:18 | P.PN ---
Subjective Progress Note Date: 11/09/21 CHIEF COMPLAINT: Rectal abscess HISTORY OF PRESENT ILLNESS: Patient is postop day #1 status post incision and drainage of rectal abscess. He reports improvement in his abdominal pain. He denies any nausea vomiting. Afebrile. WBC is trending down from 21-15. Culture is pending. PHYSICAL EXAM: VITAL SIGNS: Reviewed. GENERAL: Well-developed in no acute distress. HEENT: No sclera icterus. Extraocular movements grossly intact. Moist buccal mucosa. Head is atraumatic, normocephalic. ABDOMEN: Soft. Nondistended. Nontender. NEUROLOGIC: Alert and oriented. Cranial nerves II through XII grossly intact. SKIN: Buttocks packing is within the anus. There is serosanguineous drainage noted on the packing ASSESSMENT: 1. Rectal abscess status post incision and drainage PLAN: -Okay to remove surgical packing -Okay to shower -Continue pain medication -Continue stool softener -Continue antibiotic -Encourage patient to ambulate -DVT prophylaxis subcu heparin Physician Repair Table Operator note has been reviewed by physician. Signing provider agrees with the documented findings, assessment, and plan of care. Objective - Vital Signs Vital signs: Vital Signs Temp 97.7 F 11/09/21 07:00 Pulse 59 L 11/09/21 08:00 Resp 18 11/09/21 08:00 BP 110/68 11/09/21 07:00 Pulse Ox 96 11/09/21 07:00 FiO2 Intake & Output 11/08/21 11/09/21 11/09/21 18:59 06:59 18:59 Intake Total 1118 240 200 Output Total 25 Balance 1093 240 200 Intake: IV 1000 Oral 118 240 200 Output: Estimated Blood Loss 25 Other: Voiding Method Toilet Toilet Toilet Urinal Urinal Urinal # Voids 1 2 - Labs CBC & Chem 7: 11/09/21 06:17 11/08/21 02:00 Labs: Abnormal Lab Results - Last 24 Hours (Table) 11/09/21 Range/Units 06:17 WBC 15.47 H (4.50-10.00) X 10*3/uL Immature Gran # 0.09 H (0.00-0.04) X 10*3/uL Neutrophils # 12.39 H (1.80-7.70) X 10*3/uL Monocytes # 1.26 H (0.20-1.00) X 10*3/uL Microbiology - Last 24 Hours (Table) 11/08/21 09:10 Gram Stain - Preliminary Rectum Wound Culture - Preliminary 11/07/21 21:42 Blood Culture - Preliminary Blood No Growth after 24 hours 11/07/21 21:27 Blood Culture - Preliminary Blood No Growth after 24 hours 11/08/21 09:10 Anaerobic Culture - Preliminary Rectum
--- NOTE | 2021-11-09 12:29 | P.DS ---
Providers Date of admission: 11/07/21 23:23 Expected date of discharge: 11/09/21 Attending physician: Niranjan Cooley Consults: 11/07/21 21:18 Consult Physician Routine Consulting Provider: Andres Huerta Consult Reason/Comments: Medical Management Do you want consulting provider notified?: Yes, Notify in am Primary care physician: [facility] Hospital Course: Discharge diagnosis 1. Rectal Abscess status post I&D Hospital course This is a 56-year-old who presented with rectal pain. Patient had computed tomography scan showing perirectal abscess. Patient status post incision and drainage of perirectal abscess. Patient tolerated surgery well. His pain is controlled. His white count is trending down. He is afebrile. He has been up and ambulating. He is tolerating diet. He is stable for discharge. Physician Blacksmith Helper note has been reviewed by physician. Signing provider agrees with the documented findings, assessment, and plan of care. I have personally seen and examined the patient, reviewed the CLEAT FEEDER /PAs history, exam and MDM and agree with the assessment and plan as written. Based on total visit time, I have performed more than 50% of the visit. As above: Patient doing well today. White blood cell count is improved. Denies any pain. The iodophor gauze was removed. July discharge. Follow-up 1-2 weeks. Home on oral antibiotics. Patient Condition at Discharge: Stable Plan - Discharge Summary New Discharge Prescriptions: New Amoxic-Pot Clav 875-125Mg [Augmentin 875-125] 1 tab PO Q12HR 10 Days #20 tab Docusate [Colace] 100 mg PO BID #30 capsule HYDROcodone/APAP 5-325MG [[place] 5-325] 1 tab PO Q6HR PRN 3 Days #12 tab PRN Reason: Pain Discontinued Amoxicillin 500 mg PO TID Discharge Medication List Amoxic-Pot Clav 875-125Mg [Augmentin 875-125] 1 tab PO Q12HR 10 Days #20 tab 11/09/21 [Rx] Docusate [Colace] 100 mg PO BID #30 capsule 11/09/21 [Rx] HYDROcodone/APAP 5-325MG [[place] 5-325] 1 tab PO Q6HR PRN 3 Days #12 tab 11/09/21 [Rx] Follow up Appointment(s)/Referral(s): Niranjan Cooley MD [Medical Doctor] - 1 Week Ulises Ramos DO [Primary Care Provider] - 1-2 days Activity/Diet/Wound Care/Special Instructions: No driving while taking [place] No lifting over 10 pounds You may shower. No soaking or tub baths for 2 weeks Very light activity until you are reevaluated at your follow up appointment with your surgeon Discharge Disposition: HOME SELF-CARE
[2021-11-09 14:25] VITALS: BP 106/69; PULSE 60; RESP 16; TEMP 97.5
--- NOTE | 2021-11-10 16:03 | P.PN ---
Subjective Progress Note Date: 11/09/21 - Reason for Consult Recommendation regarding antibiotics for perirectal abscess - History of Present Illness Patient is a 56-year-old male came in with compensative rectal pain found to have perirectal abscesses patient had a perirectal abscess the past which was drained in the cold, patient also has a leukocytosis without any fever and patient had incision and drainage of the perirectal abscess with packing in that area and patient was started on Zosyn which will be continued awaiting wound cultures. 11/09/2021 Patient was seen and evaluated in follow-up this morning and his had iodoform packing removed of the perirectal abscess per surgery recommendations and able to shower. Patient is continued on gentle IV hydration along with IV anti biotics per surgery recommendations. Patient reports improvement in his abdominal pain and denies any further nausea or vomiting. Patient is tolerating diet. WBC is trending down and currently 15 today cultures continue to be pending. Encouraged increased activity as tolerated and oral intake. 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 Will await surgical recommendations. Patient is currently afebrile and denies chest pain or shortness of breath. Review of systems: Constitutional: No reports of fatigue, fever, or chills Cardiovascular: No reports of chest pain or palpitations Respiratory: No reports of shortness of breath or cough GI: No reports of nausea, vomiting, or diarrhea, reports no bowel movement as of yet : No reports of dysuria or retention Neurovascular: No reports of weakness or numbness All medications have been reviewed Active Medications Acetaminophen (Acetaminophen Tab 325 Mg Tab) 650 mg PO Q6HR PRN PRN Reason: Mild Pain or Fever >= 100.5 Hydrocodone Bitart/Acetaminophen (Hydrocodone/Apap 5-325mg 1 Each Tab) 1 each PO Q4HR PRN PRN Reason: Mild Pain Docusate Sodium (Docusate 100 Mg Cap) 100 mg PO BID [facility] Last Admin: 11/09/21 09:01 Dose: 100 mg Heparin Sodium (Porcine) (Heparin Sodium,Porcine/Pf 5,000 Unit/0.5 Ml Syringe) 5,000 unit SQ Q8HR [facility] Last Admin: 11/09/21 09:01 Dose: 5,000 unit Hydromorphone HCl (Hydromorphone 1 Mg/Ml 1 Ml Syringe) 1 mg IVP Q3HR PRN PRN Reason: Severe Pain Last Admin: 11/08/21 00:29 Dose: 1 mg Hydromorphone HCl (Hydromorphone 0.5 Mg/0.5 Ml Syringe) 0.5 mg IVP Q3HR PRN PRN Reason: Moderate to Severe Pain Sodium Chloride (Saline 0.9%) 1,000 mls @ 75 mls/hr IV .[id number] [facility] Last Admin: 11/08/21 23:53 Dose: Not Given Potassium Chloride/Dextrose/Sod Cl (D5%-1/2ns-Kcl 20 Meq/L Iv Solution) 1,000 mls @ 100 mls/hr IV .Q10H [facility] Last Admin: 11/09/21 09:01 Dose: 100 mls/hr Piperacillin Sod/Tazobactam (Sod 3.375 gm/ Sodium Chloride) 100 mls @ 25 mls/hr IVPB Q8H [facility]; Protocol Last Admin: 11/09/21 04:19 Dose: 25 mls/hr Ketorolac Tromethamine (Ketorolac 15 Mg/Ml 1 Ml Vial) 15 mg IVP Q6HR [facility] Stop: 11/10/21 06:01 Last Admin: 11/09/21 05:55 Dose: 15 mg Naloxone HCl (Naloxone 0.4 Mg/Ml 1 Ml Vial) 0.2 mg IV Q2M PRN PRN Reason: Opioid Reversal Ondansetron HCl (Ondansetron 4 Mg/2 Ml Vial) 4 mg IVP Q8HR PRN PRN Reason: Nausea And Vomiting PHYSICAL EXAMINATION: GENERAL: The patient is alert and oriented x3, not in any acute distress. Well developed, well nourished. HEENT: Pupils are round and equally reacting to light. EOMI. No scleral icterus. No conjunctival pallor. Normocephalic, atraumatic. No pharyngeal erythema. No thyromegaly. CARDIOVASCULAR: S1 and S2 present. No murmurs, rubs, or gallops. PULMONARY: Chest is clear to auscultation, no wheezing or crackles. ABDOMEN: Soft, nontender, nondistended, normoactive bowel sounds. No palpable organomegaly. MUSCULOSKELETAL: No joint swelling or deformity. EXTREMITIES: No cyanosis, clubbing, or pedal edema. NEUROLOGICAL: Gross neurological examination did not reveal any focal deficits. SKIN: Perirectal area with postsurgical dressings removed Assessment: -Perirectal abscess status post incision and drainage: Patient is maintained on IV Zosyn and awaiting cultures, WBC trending down -Leukocytosis secondary to above, trending down and is 15 today and patient is afebrile -DVT prophylaxis: As per primary service -Full code Plan: Patient will be continued on IV antibiotics and will transition to oral antibiotics per surgery recommendations. Cultures pending at this time and will follow-up with general surgery in the outpatient setting Recommend close outpatient follow-up with primary care provider and recommend repeat labs in the next few days to monitor WBC Encouraged increased activity as tolerated and oral intake Recommend frequent position changes of the rectal area with an offloading device while sitting We will continue to follow with general surgery during hospitalization. Thank you kindly for this consultation. The impression and plan of care has been dictated by Carlene Howe, Nurse Practitioner as directed. Dr. Nii MD I have performed a history and examination and MDM of this patient, discussed the same with the dictator, and agree with the dictator's assessment and plan as written ,documented as a scribe. Based on total visit time, I have performed more than 50% of the visit. Objective - Vital Signs Vital signs: Vital Signs Temp 97.7 F 11/09/21 07:00 Pulse 59 L 11/09/21 08:00 Resp 18 11/09/21 08:00 BP 110/68 11/09/21 07:00 Pulse Ox 96 11/09/21 07:00 FiO2 Intake & Output 11/08/21 11/09/21 11/09/21 18:59 06:59 18:59 Intake Total 1118 240 Output Total 25 Balance 1093 240 Intake: IV 1000 Oral 118 240 Output: Estimated Blood Loss 25 Other: Voiding Method Toilet Toilet Toilet Urinal Urinal Urinal # Voids 1 2 - Labs CBC & Chem 7: 11/09/21 06:17 11/08/21 02:00 Labs: Abnormal Lab Results - Last 24 Hours (Table) 11/09/21 Range/Units 06:17 WBC 15.47 H (4.50-10.00) X 10*3/uL Immature Gran # 0.09 H (0.00-0.04) X 10*3/uL Neutrophils # 12.39 H (1.80-7.70) X 10*3/uL Monocytes # 1.26 H (0.20-1.00) X 10*3/uL Microbiology - Last 24 Hours (Table) 11/08/21 09:10 Gram Stain - Preliminary Rectum Wound Culture - Preliminary 11/07/21 21:42 Blood Culture - Preliminary Blood No Growth after 24 hours 11/07/21 21:27 Blood Culture - Preliminary Blood No Growth after 24 hours 11/08/21 09:10 Anaerobic Culture - Preliminary Rectum
== END 2021-11-09 15:11 | disposition home or self-care (01) ==
LOC: EC 17:57 → 6NMEDSUR 23:23
PROVIDERS: ADMIT Surgery; ATTEND Surgery
DX: K61.1 Rectal abscess (principal); Z86.19 Personal history of other infectious and parasitic diseases; Z98.890 Other specified postprocedural states; Z83.3 Family history of diabetes mellitus
CPT/HCPCS: 96376 ×2; 96361 ×2; 96374; 96375; 99285; 36415; 80053; 80048; 83605; 85025 ×3; 87040; 87070; 87205; 87075; 87077; 87186; 72193; 45005; G0378 ×3; J2543 ×3; J2250; J0330; J1644 ×3; J1100; J2405 ×2; J0690; J3010; J1170 ×4; J1885 ×2; J2704; Q9967; J2001